=== PATIENT | male | born 1995 | race Hispanic/Latino ===

== ENCOUNTER 2024-03-11 18:20 | Emergency (ER) | payer OTHER ==
[2024-03-11] MEDS ORDERED: Fluorescein Opthalmic Strip ONE (19:23)
[2024-03-11] MEDS ORDERED: Tetracaine 0.5% PF 4 ML BOT ONE (19:23)
[2024-03-11] MEDS ORDERED: Cyclopentolate 1% Opth Drop 2 ML BOT ONE (19:30)
== END 2024-03-11 20:43 | disposition still patient (30) ==
LOC: NAV ERS 18:20
DX: S01.111A Laceration without foreign body of right eyelid and periocular area, initial encounter (principal); H20.011 Primary iridocyclitis, right eye; Y04.0XXA Assault by unarmed brawl or fight, initial encounter
CPT/HCPCS: 12011; 70486